=== PATIENT | female | born 1990 ===

== ENCOUNTER 2021-09-02 02:38 | Outpatient (CLI) | payer OTHER, SELFPAY ==
[2021-09-02 03:16] LABS: Appearance Urine Clear (Clear); Bilirubin Urine Negative (Negative); Blood Urine Negative (Negative); Color Urine Yellow (Yellow); Glucose Urine Negative (Negative); Ketones Urine Negative (Negative); Leukocyte Esterase Urine Trace (Negative); Nitrite Urine Negative (Negative); Protein Urine Negative (Negative); Specific Gravity Urine 1.025 (1.000-1.030); Urobilinogen Urine 0.2 (0.2-1.0)
[2021-09-02 03:35] LABS: Basophils Absolute Auto 0.02 K/uL (0.00-0.30); Basophils Percent Auto 0.2 % (0.0-3.0); Eosinophils Absolute Auto 0.08 K/uL (0.00-0.50); Eosinophils Percent Auto 0.8 % (0.0-7.0); Hemoglobin* 10.7 gm/dL (12.0-16.0); Lymphocytes Percent Auto 12.7 % (20-44); Mean Corpuscular HGB Conc 33 gm/dL (32-36); Mean Corpuscular Hemoglobin 32 pg (26-34); Mean Corpuscular Volume 95 fL (80-100); Neutrophils Percent Auto 79.4 % (42.0-72.0); Platelet Count* 181 K/uL (140-440); RDW Coefficient of Variation % 12.9 % (11.5-15.5); Red Blood Count 3.38 m/uL (4.00-5.20); White Blood Count* 10.53 K/uL (4.50-11.00)
[2021-09-02 03:38] LABS: Slide Review Reflex No
[2021-09-02 03:44] VITALS: BP 104/69; PULSE 94
[2021-09-02 03:44] LABS: Amnisure Rom* Negative; Clue Cells No Clue Cells Seen (None Seen); Trichomonas No Trichomonas Seen (None Seen); Yeast No Yeast Seen (None Seen)
[2021-09-02 03:44] LABS: RBC Urine 0-2 (0-2)
[2021-09-02 03:45] VITALS: RESP 16; TEMP 36.7
[2021-09-02 03:45] LABS: Bacteria Urine Few; Squamous Epithelial Cell Urine Few (None-Few)
[2021-09-02 04:08] LABS: Albumin* 3.7 g/dL (3.3-5.0); Chloride* 108 mmol/L (96-114); Sodium* 137 mmol/L (135-149)
[2021-09-02 04:09] LABS: Potassium* 3.6 mmol/L (3.6-5.1)
[2021-09-02 04:11] LABS: Alanine Aminotransferase* 10 U/L (4-35); Alkaline Phosphatase* 57 U/L (40-150); Aspartate Amino Transferase* 18 U/L (12-35); Bilirubin Total* 0.3 mg/dL (0.1-1.5); Blood Urea Nitrogen* 11 mg/dL (5-24); Carbon Dioxide* 25 mmol/L (20-32); Creatinine* 0.5 mg/dL (0.5-1.5); Estimated Glomerular Filt Rate 129 ml/min; Glucose* 115 mg/dL (60-115); Total Protein* 6.4 g/dL (6.0-8.3)
[2021-09-02 04:12] LABS: Calcium* 8.6 mg/dL (8.4-10.6)
[2021-09-02] MEDS: LACTATED RINGERS 1000 ML 500 ML IV (04:23)
[2021-09-02] MEDS: ONDANSETRON 2 MG/ML inj 4 MG IV (04:23)
== END 2021-09-02 06:15 | disposition home or self-care (01) ==
LOC: OB OUT 02:40 → OB 05:59
PROVIDERS: Visit Provider Obstetrics & Gynecology
DX: O47.9 False labor, unspecified (principal)
CPT/HCPCS: 36415; 80053; 81003; 81015; 84112; 85025; 86850; 86900; 86901; 87086; 87210; 99211; 99213; J2405; J7120